=== PATIENT | male | born 1935 | race Caucasian/White ===

== ENCOUNTER 2018-05-14 11:06 | Emergency (ER) | payer MEDICARE ==
[2018-05-14 11:58] LABS: #Lymphocytes 0.4 thou/uL (1.20-3.40); #Monocytes 0.4 thou/uL (0.11-0.59); #Neutrophils 9.1 thou/uL (1.40-6.50); %Basophils 0.3 % (0.0-1.0); %Eosinophils 0.3 % (0.0-10.0); %Lymphocytes 3.7 % (21.0-51.0); %Monocytes 3.8 % (0.0-10.0); %Neutrophils 91.9 % (42.0-75.0); Hemoglobin 15.8 g/dL (14.0-18.0); Mean Corpuscular Hemoglobin 28.6 pg (27.0-31.0); Mean Corpuscular Volume 89.5 fL (78.0-98.0); Mean Platelet Volume 8.1 fL (7.4-10.4); Platelet Count 267 thou/uL (130-400); RBC Distribution Width 11.9 % (11.5-14.5); Red Blood Cell (RBC) Count 5.51 mill/uL (4.70-6.10)
[2018-05-14] MEDS ORDERED: Ondansetron PF 4 MG/2 ML Vial ONE (12:15)
[2018-05-14] MEDS ORDERED: Dicyclomine 20 MG TAB ONE (12:15)
[2018-05-14 12:23] LABS: ALT (SGPT) 15 U/L (8-55); AST (SGOT) 15 U/L (5-34); Albumin 4.3 g/dL (3.4-4.8); Alkaline Phosphatase 66 U/L (40-150); Anion Gap 17 mmol/L (10-20); BUN (Urea Nitrogen) 35 mg/dL (8.4-25.7); Bilirubin, Total 0.7 mg/dL (0.2-1.2); Calc. Creatinine Clearance 0 mL/min (70-130); Calcium 8.9 mg/dL (7.8-10.44); Carbon Dioxide 21 mmol/L (23-31); Chloride 101 mmol/L (98-107); Estimated GFR-MDRD 59; Globulin 2.7 g/dL (2.4-3.5); Glucose 198 mg/dL (83-110); Lipase 26 U/L (8-78); Potassium 3.8 mmol/L (3.5-5.1); Sodium 135 mmol/L (136-145)
[2018-05-14 13:19] LABS: Bilirubin Negative (Negative); Blood, Urine Negative (Negative); Clarity CLEAR (Clear); Glucose, Urine (Dipstick) Negative (Negative); Leukocyte Negative (Negative); Nitrite Negative (Negative); Protein, Urine (Dipstick) Trace mg/dL (Neg-Trace); Specific Gravity, Urine 1.029 (1.002-1.036); Urobilinogen 0.2 mg/dL (0.2-1.0); pH, Urine 5.5 (5.0-9.0)
[2018-05-14] MEDS ORDERED: ISOVUE-370 76%-LOCM 1 ML ONE (13:32)
--- NOTE | 2018-05-14 13:44 | CT ---
CT ABDOMEN AND PELVIS WITH IV CONTRAST: Date: 05/14/18 HISTORY: Abdominal pain and diarrhea. COMPARISON: 12/24/08. FINDINGS: The most superior image demonstrates a tiny nodule, likely subpleural within the left lower lobe. Gal lbladder is surgically absent. Cysts arise from the cortex of each kidney. The largest is a left para pelvic cyst measuring up to 6.1 cm. Small hiatal hernia. There is fluid throughout the small and large bowel. Postoperative changes of the bowel are apparent. No evidence of obstruction. Scattered diverticula arise from the colon without adjacent inflammation. Prominent degenerative collado ges lumbar spine. IMPRESSION: 1. Fluid throughout the small and large bowel. No evidence of obstruction. 2. Small hiatal hernia. 3. Mild diverticulosis. No evidence of diverticulitis. POS: RAMAN
== END 2018-05-14 14:13 | disposition home or self-care (01) ==
LOC: ERS 11:06
DX: R11.2 Nausea with vomiting, unspecified (principal); R19.7 Diarrhea, unspecified; K21.9 Gastro-esophageal reflux disease without esophagitis; I10 Essential (primary) hypertension; E78.5 Hyperlipidemia, unspecified; E11.9 Type 2 diabetes mellitus without complications; Z79.899 Other long term (current) drug therapy
CPT/HCPCS: 36415; 74177; 80053; 81003; 83605; 83690; 84484; 85025; 87086; 87804; 93005; 96361; 96374; J2405; Q9966

== ENCOUNTER 2018-10-03 09:34 | Outpatient (CLI) | payer MEDICARE ==
--- NOTE | 2018-10-03 10:34 | CT ---
CT OF CHEST PERFORMED WITHOUT CONTRAST ENHANCEMENT: HISTORY: Followup of pulmonary nodule noted on CT of abdomen 05/14/2018 that was seen in the left lower lobe. FINDINGS: The thoracic aorta shows an AP dimension of the ascending aorta at 4.4 cm. I do not appreciate any s ignificant mediastinal or hilar adenopathy on this noncontrast study. There are several nodules in both lung merritt, all of which are pleural-based. There is 1 area of no dularity seen along the right minor fissure which is probably actually related to a vessel. There is a nodule in the right lower lobe along the major fissure measuring in the 6-7 mm range. The nodule in question on the previous examination in the left lower lobe is also similar in size and related to the major fissure. Given the position, these could represent fissural lymph nodes. No other findin gs. IMPRESSION: Several nodules in both lung merritt, all of which are related to the fissures and could represent fis sural lymph nodes. Followup at 1 year to assess for stability would be recommended. POS: CET
== END 2018-10-03 09:35 | disposition home or self-care (01) ==
LOC: BICCT 09:34
PROVIDERS: ATTEND Family Medicine
DX: R91.8 Other nonspecific abnormal finding of lung field (principal)
CPT/HCPCS: 71250

== ENCOUNTER 2019-01-29 12:30 | Outpatient (CLI) | payer MEDICARE ==
[2019-01-29 14:38] LABS: #Eosinphils 0.1 thou/uL (0.0-0.7); #Lymphocytes 1.8 thou/uL (1.20-3.40); #Monocytes 0.5 thou/uL (0.11-0.59); #Neutrophils 4.3 thou/uL (1.40-6.50); %Basophils 0.4 % (0.0-1.0); %Eosinophils 0.8 % (0.0-10.0); %Lymphocytes 26.4 % (21.0-51.0); %Monocytes 7.7 % (0.0-10.0); %Neutrophils 64.6 % (42.0-75.0); Hemoglobin 14.2 g/dL (14.0-18.0); Mean Corpuscular HGB CONC 33.7 g/dL (32.0-36.0); Mean Corpuscular Hemoglobin 30.6 pg (27.0-31.0); Mean Corpuscular Volume 90.6 fL (78.0-98.0); Mean Platelet Volume 9.2 fL (7.4-10.4); Platelet Count 192 thou/uL (130-400); RBC Distribution Width 11.9 % (11.5-14.5); Red Blood Cell (RBC) Count 4.64 mill/uL (4.70-6.10); White Blood Cell (WBC) Count 6.7 thou/uL (4.8-10.8)
[2019-01-29 14:42] LABS: Prothrombin Time 12.9 SEC (12.0-14.7)
[2019-01-29 14:59] LABS: Anion Gap 13 mmol/L (10-20); BUN (Urea Nitrogen) 22 mg/dL (8.4-25.7); Calc. Creatinine Clearance 0 mL/min (70-130); Calcium 9.5 mg/dL (7.8-10.44); Carbon Dioxide 23 mmol/L (23-31); Chloride 106 mmol/L (98-107); Estimated GFR-MDRD 71; Glucose 99 mg/dL (83-110); Potassium 3.7 mmol/L (3.5-5.1); Sodium 138 mmol/L (136-145)
== END 2019-01-29 12:31 | disposition home or self-care (01) ==
LOC: LABBT 12:30
PROVIDERS: ATTEND Orthopaedic Surgery
DX: Z01.812 Encounter for preprocedural laboratory examination (principal); M17.11 Unilateral primary osteoarthritis, right knee
CPT/HCPCS: 80048; 85025; 85610; 87081

== ENCOUNTER 2019-02-10 05:39 | Day surgery (SDC) | payer MEDICARE ==
[2019-01-29 12:42] VITALS: BMI 31.9
[2019-02-10] MEDS ORDERED: Sodium Chloride 0.9% 100 ML ONE (05:55)
[2019-02-10] MEDS ORDERED: Tranexamic Acid 1,000 MG/10 ML VIAL ONE (05:55)
[2019-02-10] MEDS ORDERED: Ropivacaine 0.2% HCl/PF 20 ML ONE (06:08)
[2019-02-10] MEDS ORDERED: Fentanyl 100 MCG/2 ML VIAL ONE ×2 (06:08→09:27)
[2019-02-10] MEDS ORDERED: Lidocaine 1% (PF) 30 ML VIAL ONE (06:08)
[2019-02-10] MEDS ORDERED: Midazolam HCl 2 mg/2 ml Vial ONE (06:08)
[2019-02-10] MEDS ORDERED: Vancomycin HCl 1.5 GM in Sodium Chloride 0.9% 250 ML 300 ML IVPB SCH ×2 (06:15→20:00)
[2019-02-10] MEDS ORDERED: Bupivacaine HCl 0.5%/Epinephrine 1:200,000/PF 30 ml Vial ONE (06:27)
[2019-02-10] MEDS ORDERED: Bupivacaine/Epinephrine 0.25% 30 ML VIAL ONE (06:32)
[2019-02-10] MEDS ORDERED: Zolpidem Tartrate 5 MG TAB PO PRN ×2 (07:11→09:09)
[2019-02-10] MEDS ORDERED: Ketorolac Tromethamine 30 MG/ML VIAL IVP PRN ×2 (07:11→09:09)
[2019-02-10] MEDS ORDERED: Ropivacaine HCl/PF 250 ML in Premix Bag 1 BAG NERVE BLCK SCH (07:11)
[2019-02-10] MEDS ORDERED: Promethazine HCl 25 MG/ML VIAL IM PRN ×3 (07:11→09:09)
[2019-02-10] MEDS ORDERED: traMADol HCl 50 MG TAB PO PRN (07:11)
[2019-02-10] MEDS ORDERED: Ondansetron PF 4 MG/2 ML Vial IVP PRN ×2 (07:11→09:09)
[2019-02-10] MEDS ORDERED: HYDROcodone/Acetaminophen 7.5/325 mg Tablet PO PRN (07:12)
[2019-02-10] MEDS ORDERED: Fentanyl 100 MCG/2 ML VIAL SLOW IVP PRN ×3 (07:13→09:09)
[2019-02-10] MEDS ORDERED: Ondansetron HCl/PF 4 MG/2 ML Vial IVP PRN (08:00)
[2019-02-10] MEDS ORDERED: Promethazine HCl 25 MG/ML VIAL SLOW IVP PRN (08:00)
[2019-02-10] MEDS ORDERED: diphenhydrAMINE 25 MG CAP PO PRN (09:09)
[2019-02-10] MEDS ORDERED: Acetaminophen 325 MG TAB PO PRN (09:09)
[2019-02-10] MEDS ORDERED: HYDROcodone/Acetaminophen 10/325 mg Tablet PO PRN ×2 (09:09)
--- NOTE | 2019-02-10 09:47 | RAD ---
XR Knee Rt 2 View: 02/10/2019 9:30 AM CLINICAL INDICATION: Postop COMPARISON: None. FINDINGS: Fracture:No fracture. Prosthesis: Right knee arthroplasty is in place without hardware complication. Incidental findings:None of significance. IMPRESSION: No acute osseous abnormality, involving postoperative right knee.
[2019-02-10] MEDS ORDERED: Ketorolac Tromethamine 30 MG/ML VIAL ONE (09:49)
[2019-02-10] MEDS: Aspirin 81 mg Enteric Coated Tablet PO SCH ×2 (11:25→20:56)
[2019-02-10] MEDS: Sodium Chloride 0.9% 1,000 ML IV SCH ×2 (11:25→14:30)
[2019-02-10] MEDS ORDERED: HumaLOG 300 UNITS/3 ML VIAL SC PRN (12:09)
[2019-02-10] MEDS ORDERED: Dextrose 50% Abboject 50 ML SYRINGE SLOW IVP PRN (12:09)
[2019-02-10] MEDS ORDERED: Dextrose 5% in Water 1,000 ML IV PRN (12:09)
--- NOTE | 2019-02-10 12:12 | PDOC.HOSPP ---
- Subjective Encounter Date: 02/10/19 Encounter Time: 12:10 Subjective: Patient seen and examined. No new complaints. No overnight events s/p surgery, right knee replacement consulted for medical management - Objective Vital Signs & Weight: Weight Weight 210 lb EKG Reviewed by me: Yes Hospitalist ROS - Review of Systems Eyes: denies: pain, vision change, conjunctivae inflammation, eyelid inflammation, redness, other ENT: denies: ear pain, ear discharge, nose pain, nose discharge, nose congestion , mouth pain, mouth swelling, throat pain, throat swelling, other Respiratory: denies: cough, dry, shortness of breath, hemoptysis, SOB with excertion, pleuritic pain, sputum, wheezing, other Cardiovascular: denies: chest pain, palpitations, orthopnea, paroxysmal noc. dyspnea, edema, light headedness, other Gastrointestinal: denies: nausea, vomiting, abdominal pain, diarrhea, constipation, melena, hematochezia, other Genitourinary: denies: dysuria, frequency, incontinence, hematuria, retention, other Musculoskeletal: denies: neck pain, shoulder pain, arm pain, back pain, hand pain, leg pain, foot pain, other Skin: denies: rash, lesions, nick, bruising, other - Medication Medications: Active Medications Generic Name Dose Route Start Last Admin Trade Name Freq PRN Reason Stop Dose Admin Aspirin 81 mg 02/10/19 09:00 02/10/19 11:25 Ecotrin PO Not Given BID [facility] Sodium Chloride 1,000 mls @ 100 mls/hr 02/10/19 09:09 02/10/19 11:25 Normal Saline 0.9% IV Not Given .Q10H [facility] - Exam General Appearance: NAD, awake alert Eye: PERRL, anicteric sclera ENT: normocephalic atraumatic, no oropharyngeal lesions Neck: supple, symmetric, no JVD, no thyromegaly Heart: RRR, no murmur, no gallops, no rubs, normal peripheral pulses Respiratory: CTAB, no wheezes, no rales, no ronchi Gastrointestinal: soft, non-tender, non-distended, normal bowel sounds Extremities: no cyanosis, no clubbing, no edema Extremities - other findings: right knee with dressing and nerve block in place Skin: normal turgor, no lesions, no rashes Neurological: cranial nerve grossly intact, no focal deficits Musculoskeletal: normal tone, normal strength, no muscle wasting Psychiatric: normal affect, normal behavior Hosp A/P (1) Status post total right knee replacement Code(s): Z96.651 - PRESENCE OF RIGHT ARTIFICIAL KNEE JOINT Status: Acute (2) Osteoarthritis Code(s): M19.90 - UNSPECIFIED OSTEOARTHRITIS, UNSPECIFIED SITE Status: Chronic (3) Obesity (BMI 30.0-34.9) Code(s): E66.9 - OBESITY, UNSPECIFIED Status: Chronic (4) Diabetes type 2, controlled Code(s): E11.9 - TYPE 2 DIABETES MELLITUS WITHOUT COMPLICATIONS Status: Chronic (5) GERD (gastroesophageal reflux disease) Code(s): K21.9 - GASTRO-ESOPHAGEAL REFLUX DISEASE WITHOUT ESOPHAGITIS Status: Chronic (6) Hypertension Code(s): I10 - ESSENTIAL (PRIMARY) HYPERTENSION Status: Chronic - Plan old records reviewed/req, PT/OT continue aspirin for DVT prophylaxis her pain is controlled nerve block as per anesthesia continue PT as per protocol her home medication reconcileed discharge decision as per primary team medication reviewed as above, symptomatic treatment code full code
[2019-02-10] MEDS: CEFAZOLIN 2 GM in Premix Bag 1 BAG IVPB SCH ×2 (14:30→22:54)
[2019-02-10] MEDS: HumaLOG 300 UNITS/3 ML VIAL SC PRN (16:55)
[2019-02-10] MEDS ORDERED: Ropivacaine 0.5% HCl/PF (150 MG/30 ML VIAL) ONE (19:13)
[2019-02-10] MEDS ORDERED: Ropivacaine 0.2% HCl/PF (40 MG/20 ML VIAL) ONE (19:13)
[2019-02-10] MEDS ORDERED: Ondansetron PF 4 MG/2 ML Vial ONE (19:51)
[2019-02-10] MEDS ORDERED: PHENYLEPHRINE-NS 100 MCG/ML 10 ML SYRINGE ONE (19:51)
[2019-02-10] MEDS ORDERED: ePHEDrine 50 MG/ML VIAL ONE (19:51)
[2019-02-10] MEDS ORDERED: Lidocaine 1% PF 5 ML VIAL ONE (19:51)
[2019-02-10] MEDS ORDERED: PROPOFOL 200 MG/20 ML VIAL ONE (19:51)
[2019-02-10] MEDS ORDERED: Chloraseptic Spray 180 ml Bottle PO PRN (23:35)
[2019-02-10] MEDS ORDERED: Fluticasone Propionate Nasal Spray 16 gm Bottle NASAL SCH (23:45)
[2019-02-11] MEDS: traMADol HCl 50 MG TAB PO PRN ×3 (01:51→20:20)
[2019-02-11 05:14] LABS: Hemoglobin 11.1 g/dL (14.0-18.0); Mean Corpuscular HGB CONC 34.1 g/dL (32.0-36.0); Mean Corpuscular Hemoglobin 30.5 pg (27.0-31.0); Mean Corpuscular Volume 89.5 fL (78.0-98.0); Mean Platelet Volume 8.8 fL (7.4-10.4); Platelet Count 142 thou/uL (130-400); RBC Distribution Width 11.4 % (11.5-14.5); Red Blood Cell (RBC) Count 3.62 mill/uL (4.70-6.10); White Blood Cell (WBC) Count 6.9 thou/uL (4.8-10.8)
[2019-02-11] MEDS: HYDROcodone/Acetaminophen 7.5/325 mg Tablet PO PRN ×2 (06:10→18:14)
--- NOTE | 2019-02-11 08:08 | OP ---
DATE OF PROCEDURE: 02/10/2019 PREOPERATIVE DIAGNOSES: Right knee osteoarthritis, flexion contracture. POSTOPERATIVE DIAGNOSES: Right knee osteoarthritis, flexion contracture. PROCEDURE PERFORMED: Right total knee arthroplasty. SUPERVISOR SUNGLASSES: Mickey Vasquez PA-C. ANESTHESIOLOGIST: Dr. Colindres. ANESTHESIA: The patient received a LMA with a single-shot sciatic adductor canal. ESTIMATED BLOOD LOSS: 100 mL. TOURNIQUET TIME: 84 minutes at 300 mmHg. ANTIBIOTICS: Ancef 2 g, vancomycin 1.5 g, and TXA 1 g. IMPLANTS: Zuhair Triathlon size 7, femur 7, tibia with a 9 CS poly and A35 patella. COMPLICATIONS: None. INDICATIONS FOR PROCEDURE: Mr. Carroll is an 83-year-old male with history of right knee pain for several years. The patient desired to proceed with a right total knee arthroplasty. I discussed the risks and benefits of surgery, pain, scar, bleeding, infection, damage to vital structures, decreased range of motion and strength, need for further surgeries, failure of procedure, continued pain despite surgery intervention, loss of life or limb. The patient understood the risks and benefits, and elected to proceed. DESCRIPTION OF PROCEDURE: Time-out was performed designating the patient's right lower extremity as the operative site based on site, consents, and markings. After time-out, the patient's right lower extremity was prepped and draped in sterile fashion. Tourniquet was brought up and let up for 84 minutes. Anterior midline approach was made, medial patellar arthrotomy with rongeurs, the fat pad, I did our medial soft tissue release. We everted the patella, exposed distal femur, mapped the femur cut with 11, 9, 0 degrees of varus valgus and 5 degrees of anterior slope. We placed 3-degree external rotation device and mapped out about a size 7 femur. We cut, placed our blocks in place, cut our anterior and posterior chamfer cuts and placed our pickle fork, which was difficult. This patient had significant flexion contracture and difficulty in exposure as well as we mapped out the tibia. We cut 2, 8, 4 degrees of slope, 0 degrees of varus and valgus, removed our tibia, some osteophytes, placed our laminar rig superintendent, removed our medial and lateral menisci osteophytes, decompressed the PCL, release the PCL for help for exposure, took down medial osteophytes off the tibial plateau as well as off the osteophytes blocking the MCL. Be happy with our exposure. We pinned the size [address] and the anterior 1/3 of the tibial tubercle in line with the second ray. We placed our 9 mm poly tracked well. He is little tight in flexion, which we used a rasp to leia down medially. We then came to full extension. We had overall good tracking and range of motion and was pleased with the plane and range of motion, everted the patella, cut it down from about 26 down to about 14, placed a 32 patella, happy with overall tracking alignment. We drilled our lugs, cut our keel for tibia, removed all implants, washed the joint. We removed a little bit osteophyte off the lateral aspect of the tibia and rasp, found the medial plateau. We then cemented our tibial component, removed excess cement. We placed our poly, cemented our femur, removed the excess cement, everted the patella, brought in extension and compressed, left our clamp in place, removed excess cement, removed the excess cement at the femur. We washed. We closed the arthrotomy with #2 Vicryl, 2 StrataFix, 0 StrataFix, 2-0 StrataFix, and glue. The patient will be weightbearing as tolerated. Followup in PACU postop. Job ID: [id number]
[2019-02-11] MEDS: Aspirin 81 mg Enteric Coated Tablet PO SCH ×2 (09:11→20:20)
[2019-02-11] MEDS: Senokot S 8.6-50 MG TAB PO SCH ×2 (09:11→20:20)
[2019-02-11] MEDS: Ferrous Gluconate 324 MG TAB PO SCH ×2 (09:11→18:11)
[2019-02-11] MEDS: Multivitamin W/ Minerals 1 TAB PO SCH (09:12)
[2019-02-11] MEDS: Fluticasone Propionate Nasal Spray 16 gm Bottle NASAL SCH (09:12)
[2019-02-11] MEDS: Sodium Chloride 0.9% 1,000 ML IV SCH ×3 (09:30→19:53)
--- NOTE | 2019-02-11 14:35 | PDOC.HOSPP ---
- Subjective Encounter Date: 02/11/19 Encounter Time: 14:32 Subjective: doing well with PT, etc - Objective Vital Signs & Weight: Vital Signs (12 hours) Temp Pulse Resp BP Pulse Ox 02/11/19 08:00 97 02/11/19 07:27 98 F 73 18 114/64 97 02/11/19 04:00 97.7 F 77 16 107/59 L 92 L Weight Admit Weight 210 lb Weight 210 lb I&O: 02/10/19 02/11/19 02/12/19 06:59 06:59 06:59 Intake Total 1450 1400 Output Total 225 525 Balance 1225 875 Result Diagrams: 02/11/19 04:43 Additional Labs: Accuchecks 02/11/19 02/11/19 02/10/19 12:37 05:19 21:02 POC Glucose 149 H 134 H 197 H 02/10/19 15:51 POC Glucose 160 H Hospitalist ROS - Medication Medications: Active Medications Generic Name Dose Route Start Last Admin Trade Name Freq PRN Reason Stop Dose Admin Acetaminophen 650 mg 02/10/19 09:09 02/10/19 23:34 Tylenol PO 650 mg Q4H PRN Administration Headache/Fever or Pain Hydrocodone Bitart/Acetaminophen 2 tab 02/10/19 07:13 02/11/19 06:10 Jewell 7.5/325 PO 2 tab Q4H PRN Administration Moderate Pain (4-6) Aspirin 81 mg 02/10/19 09:00 02/11/19 09:11 Ecotrin PO 81 mg BID GREGG Administration Diphenhydramine HCl 25 mg 02/10/19 09:09 02/10/19 23:34 Benadryl PO 25 mg Q6H PRN Administration Itching Ferrous Gluconate 324 mg 02/11/19 08:00 02/11/19 09:11 Fergon PO 324 mg BID-WM GREGG Administration Fluticasone Propionate 0 gm 02/11/19 09:00 02/11/19 09:12 Flonase Nasal Hensel NASAL 1 spr DAILY GREGG Administration Ropivacaine 250 ml/ Device 250 mls @ 10 mls/hr 02/10/19 07:11 02/11/19 12:33 NERVE BLCK 02/13/19 07:10 250 mls INF GREGG Administration Sodium Chloride 1,000 mls @ 100 mls/hr 02/10/19 09:09 02/11/19 09:30 Normal Saline 0.9% IV Not Given .Q10H GREGG Insulin Human Lispro 0 units 02/10/19 12:09 02/10/19 16:55 Humalog SC 2 unit .MODERATE SLIDING SC PRN Administration Moderate Correctional Scale Iron/Minerals/Multivitamins 1 tab 02/11/19 09:00 02/11/19 09:12 Theragran M PO 1 tab DAILY GREGG Administration Ketorolac Tromethamine 15 mg 02/10/19 07:11 02/11/19 09:13 Toradol IVP 02/13/19 07:12 15 mg Q6H PRN Administration Moderate Pain (4-6) Phenol 0 ml 02/10/19 23:35 02/10/19 23:50 Chloraseptic Hensel 180 Ml Bot PO 1 spray PRN PRN Administration SORE THROAT Senna/Docusate Sodium 2 tab 02/11/19 09:00 02/11/19 09:11 Senokot S PO 2 tab BID GREGG Administration Tramadol HCl 100 mg 02/10/19 07:11 02/11/19 09:14 Ultram PO 100 mg Q6H PRN Administration Moderate Pain 4-6 - Exam Neck: no JVD Heart: RRR, no murmur Respiratory: CTAB Gastrointestinal: soft, normal bowel sounds Extremities: no edema Hosp A/P (1) Status post total right knee replacement Code(s): Z96.651 - PRESENCE OF RIGHT ARTIFICIAL KNEE JOINT Status: Acute (2) Diabetes type 2, controlled Code(s): E11.9 - TYPE 2 DIABETES MELLITUS WITHOUT COMPLICATIONS Status: Chronic Qualifiers: Diabetes mellitus long term acute care registered nurse insulin use: without long term acute care registered nurse use Diabetes mellitus complication status: without complication Qualified Code(s): E11.9 - Type 2 diabetes mellitus without complications (3) GERD (gastroesophageal reflux disease) Code(s): K21.9 - GASTRO-ESOPHAGEAL REFLUX DISEASE WITHOUT ESOPHAGITIS Status: Chronic Qualifiers: Esophagitis presence: without esophagitis Qualified Code(s): K21.9 - Gastro -esophageal reflux disease without esophagitis (4) Hypertension Code(s): I10 - ESSENTIAL (PRIMARY) HYPERTENSION Status: Chronic Qualifiers: Hypertension type: essential hypertension Qualified Code(s): I10 - Essential (primary) hypertension - Plan doing well with PT DM well controlled cont current meds had 1 episode elevated temp last nite, no evidense of infection on PE, DAWSON if recurs
[2019-02-12] MEDS: HYDROcodone/Acetaminophen 7.5/325 mg Tablet PO PRN ×3 (05:06→13:53)
[2019-02-12 05:25] LABS: Hemoglobin 11.3 g/dL (14.0-18.0); Mean Corpuscular HGB CONC 32.4 g/dL (32.0-36.0); Mean Corpuscular Hemoglobin 29.5 pg (27.0-31.0); Mean Platelet Volume 8.8 fL (7.4-10.4); Platelet Count 138 thou/uL (130-400); RBC Distribution Width 11.4 % (11.5-14.5); Red Blood Cell (RBC) Count 3.83 mill/uL (4.70-6.10); White Blood Cell (WBC) Count 8.9 thou/uL (4.8-10.8)
[2019-02-12] MEDS: Sodium Chloride 0.9% 1,000 ML IV SCH ×2 (06:48→08:45)
[2019-02-12 07:58] VITALS: TEMP 98
[2019-02-12] MEDS: Ferrous Gluconate 324 MG TAB PO SCH (08:40)
[2019-02-12] MEDS: Aspirin 81 mg Enteric Coated Tablet PO SCH (08:40)
[2019-02-12] MEDS: Multivitamin W/ Minerals 1 TAB PO SCH (08:41)
[2019-02-12] MEDS: Senokot S 8.6-50 MG TAB PO SCH (08:42)
[2019-02-12] MEDS: Fluticasone Propionate Nasal Spray 16 gm Bottle NASAL SCH (08:43)
[2019-02-12 12:18] VITALS: BP 117/70
[2019-02-12] MEDS: HumaLOG 300 UNITS/3 ML VIAL SC PRN (13:25)
--- NOTE | 2019-02-13 13:28 | DIS ---
DATE OF ADMISSION: 02/10/2019 DATE OF DISCHARGE: 02/12/2019 This is Mickey Vasquez PA-C dictating a report for Berry Islas MD. PREOPERATIVE DIAGNOSES: Right knee osteoarthritis/degenerative joint disease. POSTOPERATIVE DIAGNOSES: Right knee osteoarthritis/degenerative joint disease. PROCEDURE PERFORMED: The patient underwent a right total knee replacement. HOSPITAL COURSE: Hospital stay, unremarkable. Admitted to [address], where he worked with staff, Physical Therapy, Occupational Therapy, and progressed quite well. By postoperative day 2, he was ready to discharge home. DISCHARGE CONDITION: Good/stable. DISPOSITION: Home with family. FOLLOWUP: Followup would be in 2 to 3 weeks or sooner if there are problems and/or concerns. DISCHARGE MEDICATIONS: Given with usage instructions. Job ID: [id number]
== END 2019-02-12 14:05 | disposition home or self-care (01) ==
LOC: SDC 05:39 → SJJU 06:51 → SDC 02-12 14:05
PROVIDERS: ATTEND Orthopaedic Surgery
PROC: 0SRC0J9 Replacement of Right Knee Joint with Synthetic Substitute, Cemented, Open Approach (ICD-10-PCS; principal; 2019-02-10)
DX: M17.11 Unilateral primary osteoarthritis, right knee (principal); M24.561 Contracture, right knee; E11.9 Type 2 diabetes mellitus without complications; K21.9 Gastro-esophageal reflux disease without esophagitis; I10 Essential (primary) hypertension; E66.9 Obesity, unspecified; Z68.31 Body mass index [BMI] 31.0-31.9, adult; Z79.84 Long term (current) use of oral hypoglycemic drugs; Z79.899 Other long term (current) drug therapy; Z96.652 Presence of left artificial knee joint
CPT/HCPCS: 27447; 73560; 82962; 85027; 97116 ×3; 97139 ×4; 97150 ×2; 97530; C1713; C1776; 36415; 36416; J0131; J0670; J0690; J1885; J2001; J2250; J2405; J2704; J2795; J3010; J3370; J3490; J7050; Q0163

== ENCOUNTER 2019-09-11 12:21 | Outpatient (CLI) | payer MEDICARE ==
--- NOTE | 2019-09-11 17:14 | CT ---
CT OF THE CHEST 09/11/19 COMPARISON: 10/03/18. HISTORY: Re-evaluate pulmonary nodule. TECHNIQUE: Axial CT imaging at 3 mm intervals through the chest without intravenous contrast. Coronal and sagitt al reformatted imaging obtained. FINDINGS: The lack of contrast media limits assessment of the imaged viscera, the vascular structures, and for lymphadenopathy. Partially imaged upper abdomen demonstrates cholecystectomy clips and incompletely assessed bilateral renal hypodense lesions. The appearance of the upper abdomen appears unchanged when compared to the prior examination. There is calcification at the level of the aortic valve. Coronary arterial calcification is seen and there is atherosclerotic calcification of the aortic arch and the descending thoracic aorta. No pleural, pericardial, or mediastinal fluid is evident. There is a small sliding type hiatal hernia . Limited assessment of the chest for lymphadenopathy is unremarkable. No pneumothorax is evident on either side. There is a nodule posterior to the major fissure on the left within the left lower lobe on axial imag e 69 measuring 8 mm, not significantly changed. An additional nodule is seen abutting the posterior a spect of the major fissure within the left lower lobe on image 74 measuring 7 mm, stable as well. Linear densities are noted within the lingula and anterior inferior left lower lobe suggesting stable scar. No endobronchial lesion is appreciated on either side. A nodular density is seen abutting the posterior aspect of the major fissure within the right lower l obe measuring approximately 1 cm in transverse dimension, unchanged when compared to the prior study. There is linear scar within the inferolateral aspect of the right middle lobe. There is a nodule with in the anterior aspect of the mid right lung zone on axial image 77 measuring approximately 8 mm, whi ch appears to be at the junction of the right middle and right lower lobe. This is stable when compar ed to the prior study as well. Review of the osseous structures demonstrates no worrisome lytic or blastic bone lesions. IMPRESSION: Stable chest CT as detailed above. POS: VICTOR MANUEL
== END 2019-09-11 12:22 | disposition home or self-care (01) ==
LOC: BICCT 12:21
PROVIDERS: ATTEND Family Medicine
DX: R91.1 Solitary pulmonary nodule (principal)
CPT/HCPCS: 71250

== ENCOUNTER 2022-02-15 11:00 | Outpatient (CLI) | payer MEDICARE ==
[2022-02-15 12:55] LABS: #Basophils 0.1 10x3/uL (0.0-0.2); #Eosinphils 0.2 10x3/uL (0.0-0.5); #Monocytes 0.5 10x3/uL (0.0-1.1); #Neutrophils 3.8 10x3/uL (1.5-8.4); %Eosinophils 2.9 % (0.0-6.0); %Lymphocytes 25.8 % (18.0-47.0); %Monocytes 8.7 % (0.0-10.0); %Neutrophils 61.4 % (40.0-75.0); Hemoglobin 12.8 g/dL (13.5-17.5); Mean Corpuscular HGB CONC 33.4 g/dL (32.0-36.0); Mean Corpuscular Hemoglobin 29.6 pg (27.0-33.0); Mean Corpuscular Volume 88.7 fl (81.2-95.1); Mean Platelet Volume 11.4 fl (7.4-10.4); Platelet Count 204 10x3/uL (150-450); Red Blood Cell (RBC) Count 4.32 10x6/uL (4.32-5.72); White Blood Cell (WBC) Count 6.2 10x3/uL (3.5-10.5)
[2022-02-15 13:32] LABS: ALT (SGPT) 20 U/L (8-55); AST (SGOT) 20 U/L (5-34); Albumin 4.1 g/dL (3.4-4.8); Alkaline Phosphatase 90 U/L (40-110); Anion Gap 14 mmol/L (10-20); BUN (Urea Nitrogen) 28 mg/dL (8.4-25.7); Bilirubin, Total 0.8 mg/dL (0.2-1.2); Calc. Creatinine Clearance 0 mL/min (70-130); Calcium 8.9 mg/dL (7.8-10.44); Carbon Dioxide 24 mmol/L (23-31); Chloride 109 mmol/L (98-107); Cholesterol 86 mg/dl (< 200 Desired); Estimated GFR 65; Globulin 2.2 g/dL (2.4-3.5); Glucose 100 mg/dL (83-110); Potassium 4.5 mmol/L (3.5-5.1); Protein, Total 6.3 g/dL (5.8-8.1); Sodium 142 mmol/L (136-145); Triglycerides 50 mg/dL (Less than 150)
[2022-02-15 13:33] LABS: Cardiac Risk 3.3 (Less than 4.5); HDL Cholesterol 26 mg/dL (>60 Neg Risk); LDL Cholesterol, Calculated 50 mg/dL
== END 2022-02-15 11:01 | disposition home or self-care (01) ==
LOC: LABBT 11:00
PROVIDERS: ATTEND Internal Medicine Cardiovascular Disease
DX: Z01.818 Encounter for other preprocedural examination (principal); I35.0 Nonrheumatic aortic (valve) stenosis
CPT/HCPCS: 80053; 80061; 85025; 93005; 93010

== ENCOUNTER 2022-02-19 05:54 | Inpatient (IN) | payer MEDICARE ==
[2022-02-19] MEDS ORDERED: Lidocaine 1% PF 5 ML VIAL ONE ×2 (06:26→06:41)
[2022-02-19] MEDS ORDERED: Heparin 10,000 UNITS/ 10 ML VIAL ONE (06:26)
[2022-02-19] MEDS ORDERED: Lidocaine 1% (PF) 30 ML VIAL ONE (06:41)
[2022-02-19] MEDS ORDERED: FENTANYL 50 MCG/ML 1 ML VIAL ONE (07:09)
[2022-02-19] MEDS ORDERED: Midazolam HCl 2 mg/2 ml Vial ONE (07:09)
[2022-02-19] MEDS ORDERED: Protamine Sulfate 50 MG/5 ML VIAL ONE (07:34)
[2022-02-19] MEDS ORDERED: DOPamine 400 MG/D5W 250 ML 250 ML ONE (07:45)
[2022-02-19] MEDS ORDERED: Atropine Sulfate 1 mg/1 ml Vial ONE (07:47)
[2022-02-19] MEDS ORDERED: Sodium Chloride 0.9% 200 ML IV PRN (08:35)
[2022-02-19] MEDS ORDERED: Nitroglycerin 0.4 MG TAB (25 Tab Bottle) SL PRN (08:35)
[2022-02-19] MEDS ORDERED: Acetaminophen/Codeine 30-300mg Tablet PO PRN ×2 (08:35)
[2022-02-19] MEDS ORDERED: Sodium Chloride 0.9% 1,000 ML IV SCH (08:45)
[2022-02-19] MEDS ORDERED: Iopamidol 370 76% 100 ML VIAL ONE (08:46)
[2022-02-19 19:04] LABS: SARS-CoV-2 NAA Rapid Test Not Detected (NotDetected)
[2022-02-19 19:35] VITALS: BMI 30.3
[2022-02-19] MEDS ORDERED: Atorvastatin Calcium 20 MG TAB PO SCH (21:00)
[2022-02-19] MEDS ORDERED: Metoprolol Tartrate 100 MG TAB PO SCH (21:00)
[2022-02-20] MEDS ORDERED: glyBURIDE 2.5 MG TAB PO SCH (07:30)
[2022-02-20] MEDS ORDERED: FLU VACC QS2022-23(65YR UP)/PF 240 MCG/0.7 ML SYRINGE IM ONE (09:00)
[2022-02-20] MEDS ORDERED: Aspirin 81 mg Enteric Coated Tablet PO SCH (09:00)
[2022-02-21 02:32] VITALS: BP 122/65; TEMP 97.7
== END 2022-02-20 01:25 | disposition short-term general hospital (02) | DRG 287 ==
LOC: CCL 05:54 → 2NO 08:35
PROVIDERS: ADMIT Internal Medicine Cardiovascular Disease; ATTEND Internal Medicine Cardiovascular Disease
PROC: 4A023N8 Measurement of Cardiac Sampling and Pressure, Bilateral, Percutaneous Approach (ICD-10-PCS; principal; 2022-02-19)
PROC: B2161ZZ Fluoroscopy of Right and Left Heart using Low Osmolar Contrast (ICD-10-PCS; 2022-02-19)
PROC: B2111ZZ Fluoroscopy of Multiple Coronary Arteries using Low Osmolar Contrast (ICD-10-PCS; 2022-02-19)
DX: I35.0 Nonrheumatic aortic (valve) stenosis (principal); Z20.822 Contact with and (suspected) exposure to COVID-19; I10 Essential (primary) hypertension; E11.9 Type 2 diabetes mellitus without complications; I25.10 Atherosclerotic heart disease of native coronary artery without angina pectoris; E78.00 Pure hypercholesterolemia, unspecified; Z79.84 Long term (current) use of oral hypoglycemic drugs; Z79.899 Other long term (current) drug therapy; Z90.49 Acquired absence of other specified parts of digestive tract
CPT/HCPCS: 85347; 93460; 93567; 94760; 99152; 99153; C1751; C1769; C1894; J0461; J1265; J1644; J2001; J2250; J2720; J3010; U0002

== ENCOUNTER 2022-07-06 14:51 | Observation (INO) | payer MEDICARE ==
[~2022-07-06 14:51] MED LIST: Iopamidol-370 76% 500 ML MDV (1 ML CHARGE) ONE
[2022-07-06 15:48] LABS: #Eosinphils 0.1 thou/uL (0.0-0.7); #Lymphocytes 1.1 thou/uL (1.20-3.40); #Monocytes 0.5 thou/uL (0.11-0.59); #Neutrophils 7.6 thou/uL (1.40-6.50); %Basophils 0.4 % (0.0-1.0); %Eosinophils 0.7 % (0.0-10.0); %Lymphocytes 11.8 % (21.0-51.0); %Monocytes 5.7 % (0.0-10.0); %Neutrophils 81.3 % (42.0-75.0); Hemoglobin 12.8 g/dL (14.0-18.0); Mean Corpuscular HGB CONC 32.7 g/dL (32.0-36.0); Mean Corpuscular Hemoglobin 29.7 pg (27.0-31.0); Mean Corpuscular Volume 90.7 fl (78.0-98.0); Mean Platelet Volume 8.9 fL (7.4-10.4); Platelet Count 140 10x3/uL (130-400); RBC Distribution Width 12.1 % (11.5-14.5); Red Blood Cell (RBC) Count 4.32 mill/uL (4.70-6.10); White Blood Cell (WBC) Count 9.3 10x3/uL (4.8-10.8)
[2022-07-06 15:48] LABS: Actual Bicarbonate (HCO3v) 23 mEq/L (22-28); Analyzer IN Cardio ER; Base Excess 1.3 mEq/L (-2.0 to +3.0); Calcium, Ionized (venous) 1.12 mmol/L (1.16-1.32); Chloride (VBG) 102 mmol/L (98-106); Hemoglobin (Hb) 13.1 g/dL (12.6-17.4); Potassium (VBG) 3.94 mmol/L (3.70-5.30); Sodium 137.4 mmol/L (133-146); pH (venous) 7.52 (7.32-7.43)
[2022-07-06 16:05] LABS: INR-International Normal Ratio 0.9; PTT 26.2 sec (22.9-36.1); Prothrombin Time 12.7 sec (12.0-14.7)
[2022-07-06 16:09] LABS: ALT (SGPT) 17 U/L (8-55); AST (SGOT) 19 U/L (5-34); Albumin 4.1 g/dL (3.4-4.8); Alkaline Phosphatase 119 U/L (40-110); Anion Gap 16 mmol/L (10-20); BUN (Urea Nitrogen) 21 mg/dL (8.4-25.7); Bilirubin, Total 0.7 mg/dL (0.2-1.2); Calc. Creatinine Clearance 0 mL/min (70-130); Calcium 9.5 mg/dL (7.8-10.44); Carbon Dioxide 22 mmol/L (23-31); Chloride 104 mmol/L (98-107); Estimated GFR 68; Globulin 2.7 g/dL (2.4-3.5); Glucose 136 mg/dL (83-110); Lipase 24 U/L (8-78); Potassium 3.9 mmol/L (3.5-5.1); Protein, Total 6.8 g/dL (5.8-8.1); Sodium 138 mmol/L (136-145)
[2022-07-06 18:25] LABS: Bilirubin Negative (Negative); Blood, Urine Negative (Negative); Clarity Clear (Clear); Glucose, Urine (Dipstick) Normal (Negative); Ketone, Urine Negative (Negative); Leukocyte Negative Leu/uL (Negative); Nitrite Negative (Negative); Protein, Urine (Dipstick) Negative (Neg-Trace); Specific Gravity, Urine 1.033 (1.002-1.036); Urobilinogen Normal mg/dL (Less than 2)
[2022-07-06] MEDS ORDERED: HumaLOG 300 UNITS/3 ML VIAL SC PRN ×2 (19:47)
[2022-07-06] MEDS ORDERED: Dextrose 50% Abboject 50 ML SYRINGE SLOW IVP PRN (19:47)
[2022-07-06] MEDS ORDERED: Dextrose 5% in Water 1,000 ML IV PRN (19:47)
[2022-07-06] MEDS ORDERED: Acetaminophen 325 MG TAB PO PRN (19:54)
[2022-07-06] MEDS ORDERED: Ondansetron ODT 4 MG TAB PO PRN (19:54)
[2022-07-06] MEDS ORDERED: Ondansetron PF 4 MG/2 ML Vial IVP PRN (19:54)
[2022-07-06 20:48] VITALS: BMI 29.0
[2022-07-06] MEDS: Sodium Chloride 0.9% 1,000 ML IV SCH (22:05)
[2022-07-07 06:59] LABS: #Eosinphils 0.2 thou/uL (0.0-0.7); #Lymphocytes 1.1 thou/uL (1.20-3.40); #Monocytes 0.5 thou/uL (0.11-0.59); #Neutrophils 3.3 thou/uL (1.40-6.50); %Basophils 0.7 % (0.0-1.0); %Eosinophils 3.6 % (0.0-10.0); %Lymphocytes 22.1 % (21.0-51.0); %Neutrophils 64.7 % (42.0-75.0); Hemoglobin 11.3 g/dL (14.0-18.0); Mean Corpuscular HGB CONC 33.7 g/dL (32.0-36.0); Mean Corpuscular Hemoglobin 30.6 pg (27.0-31.0); Mean Corpuscular Volume 90.8 fl (78.0-98.0); Mean Platelet Volume 9.1 fL (7.4-10.4); Platelet Count 114 10x3/uL (130-400); RBC Distribution Width 12.1 % (11.5-14.5); Red Blood Cell (RBC) Count 3.68 mill/uL (4.70-6.10); White Blood Cell (WBC) Count 5.2 10x3/uL (4.8-10.8)
[2022-07-07 07:03] LABS: Anion Gap 10 mmol/L (10-20); BUN (Urea Nitrogen) 15 mg/dL (8.4-25.7); Calc. Creatinine Clearance 70 mL/min (70-130); Calcium 8.4 mg/dL (7.8-10.44); Carbon Dioxide 25 mmol/L (23-31); Chloride 109 mmol/L (98-107); Estimated GFR 81; Glucose 110 mg/dL (83-110); Potassium 3.7 mmol/L (3.5-5.1); Sodium 140 mmol/L (136-145)
[2022-07-07] MEDS: Sodium Chloride 0.9% 1,000 ML IV SCH (07:18)
[2022-07-07] MEDS ORDERED: Clopidogrel Bisulfate 75 MG TAB PO SCH (09:00)
[2022-07-07] MEDS: Atorvastatin Calcium 20 MG TAB PO SCH (10:07)
[2022-07-07] MEDS ORDERED: Sodium Chloride 0.9% 1,000 ML IV SCH (11:06)
[2022-07-07] MEDS: Lactated Ringer's 1,000 ML IV SCH (13:50)
[2022-07-08] MEDS: Lactated Ringer's 1,000 ML IV SCH (06:06)
[2022-07-08 06:25] LABS: #Basophils 0.1 thou/uL (0.0-0.2); #Eosinphils 0.2 thou/uL (0.0-0.7); #Lymphocytes 1.3 thou/uL (1.20-3.40); #Monocytes 0.5 thou/uL (0.11-0.59); #Neutrophils 3.3 thou/uL (1.40-6.50); %Eosinophils 3.8 % (0.0-10.0); %Lymphocytes 23.6 % (21.0-51.0); %Monocytes 9.7 % (0.0-10.0); Hemoglobin 11.6 g/dL (14.0-18.0); Mean Corpuscular HGB CONC 33.9 g/dL (32.0-36.0); Mean Corpuscular Hemoglobin 30.6 pg (27.0-31.0); Mean Corpuscular Volume 90.4 fl (78.0-98.0); Mean Platelet Volume 9.1 fL (7.4-10.4); Platelet Count 122 10x3/uL (130-400); RBC Distribution Width 11.9 % (11.5-14.5); Red Blood Cell (RBC) Count 3.79 mill/uL (4.70-6.10); White Blood Cell (WBC) Count 5.4 10x3/uL (4.8-10.8)
[2022-07-08 06:46] LABS: Anion Gap 11 mmol/L (10-20); BUN (Urea Nitrogen) 18 mg/dL (8.4-25.7); Calc. Creatinine Clearance 69 mL/min (70-130); Calcium 8.7 mg/dL (7.8-10.44); Carbon Dioxide 25 mmol/L (23-31); Chloride 107 mmol/L (98-107); Estimated GFR 79; Glucose 120 mg/dL (83-110); Potassium 3.9 mmol/L (3.5-5.1); Sodium 139 mmol/L (136-145)
[2022-07-08] MEDS: Atorvastatin Calcium 20 MG TAB PO SCH (08:42)
[2022-07-08] MEDS ORDERED: PROPOFOL 200 MG/20 ML VIAL ONE (11:27)
[2022-07-08 17:17] VITALS: BP 158/76; TEMP 99
== END 2022-07-08 17:15 | disposition home or self-care (01) ==
LOC: ERS 14:51 → SURG A 19:17
PROVIDERS: ADMIT Internal Medicine; ATTEND Family Medicine
PROC: 0DB68ZX Excision of Stomach, Via Natural or Artificial Opening Endoscopic, Diagnostic (ICD-10-PCS; principal; 2022-07-08)
DX: K29.70 Gastritis, unspecified, without bleeding (principal); K31.9 Disease of stomach and duodenum, unspecified; E11.9 Type 2 diabetes mellitus without complications; N13.1 Hydronephrosis with ureteral stricture, not elsewhere classified; I25.10 Atherosclerotic heart disease of native coronary artery without angina pectoris; I10 Essential (primary) hypertension; K21.9 Gastro-esophageal reflux disease without esophagitis; E78.5 Hyperlipidemia, unspecified; I77.810 Thoracic aortic ectasia; G47.33 Obstructive sleep apnea (adult) (pediatric); Z79.02 Long term (current) use of antithrombotics/antiplatelets; Z79.82 Long term (current) use of aspirin; Z79.899 Other long term (current) drug therapy; Z95.2 Presence of prosthetic heart valve; Z90.49 Acquired absence of other specified parts of digestive tract
CPT/HCPCS: 43239; 71045; 71275; 74019; 74022; 74174; 80048 ×2; 80053; 81003; 82805; 82962 ×3; 83605; 83690; 83880; 84484; 85025 ×3; 85610; 85730; 86850; 86900; 86901; 87040; 87086; 93005; 94760; 99285; G0378 ×4; 36415; 36416; 88305; 88342; J2704; J7050; J7120; Q9967